=== PATIENT | female | born 1980 | race Caucasian/White ===

== ENCOUNTER 2017-05-12 13:05 | Emergency (ER) | payer MEDICAID ==
[~2017-05-12] VITALS: Ht 154.9 cm; Wt 57.8 kg
[2017-05-12 13:10] VITALS: BP 121/62
--- NOTE | 2017-05-12 13:15 | NUR ---
Patient to bed 12.
--- NOTE | 2017-05-12 13:20 | NUR ---
37 F BIB SELF C/O SEVERE PRURITUS THAT STARTED AROUND 1100HRS TODAY; PT UNAWARE OF WHAT IS THE CAUSE; NOTED HIVES THROUGHOUT BODY; NO SWELLING TO TONGUE, FACE, OR LIPS; RR ARE EVEN AND UNLABORED; NO RESP DISTRESS NOTED; DENIES N/V/D; AOX4 WITH EVEN AND STEADY GAIT; PATIENT STATES PAIN OF 0/10 AT THIS TIME; VSS; PATIENT POSITIONED FOR COMFORT; HOB ELEVATED; BED DOWN. ER MD MADE AWARE OF PT STATUS. WILL CONTINUE TO MONITOR.
--- NOTE | 2017-05-12 13:21 | NUR ---
Dr. Hsieh evaluating patient at bedside.
[2017-05-12 14:40] VITALS: BP 116/60
== END 2017-05-12 14:40 | disposition home or self-care (01) ==
LOC: MED 13:05
DX: L50.9 Urticaria, unspecified (principal)
CPT/HCPCS: 81002; 81025; 96372; 99283; J0171